=== PATIENT | female | born 1945 | race Caucasian/White ===

== ENCOUNTER 2023-10-11 07:48 | Day surgery (SDC) | payer MEDICARE, OTHER ==
[2023-10-07 16:19] LABS: BASOPHILS % (AUTO) 0.8 % (0-1); EOSINOPHILS # (AUTO) 0.2 X10'3 (0-0.9); EOSINOPHILS % (AUTO) 2.8 % (0-6); LYMPHOCYTES # (AUTO) 1.3 X10'3 (1.1-4.8); LYMPHOCYTES % (AUTO) 20.9 % (21-51); MEAN CORPUSCULAR HEMOGLOBIN 27.7 PG (27.0-31.0); MEAN CORPUSCULAR HGB CONC 33.2 g/dL (33.0-36.5); MEAN CORPUSCULAR VOLUME 83.3 FL (78-98); MEAN PLATELET VOLUME 7.9 FL (7.4-10.4); MONOCYTES # (AUTO) 0.5 X10'3 (0-0.9); MONOCYTES % (AUTO) 7.7 % (2-12); NEUTROPHILS # (AUTO) 4.2 X10'3 (1.8-7.7); NEUTROPHILS % (AUTO) 67.8 % (42-75); PRE OP HEMOGLOBIN 13.6 g/dL (12.0-16.0); PRE OP PLATELET COUNT 248 X10'3 (140-440); PRE OP WHITE BLOOD COUNT 6.2 10'3 (4.8-10.8); RED BLOOD COUNT 4.92 X10'6 (4.20-5.60)
[2023-10-07 16:36] LABS: PRE OP PROTIME 10.2 SECONDS (9.0-12.0)
[2023-10-07 16:39] LABS: ALBUMIN 3.5 G/DL (3.4-5.0); ALBUMIN/GLOBULIN RATIO 0.7 (1.1-1.5); ALKALINE PHOSPHATASE 55 IU/L (46-116); BLOOD UREA NITROGEN 23 MG/DL (7-18); BUN/CREATININE RATIO 21.5 (10.0-20.0); CALCIUM 9.3 MG/DL (8.5-10.1); CHLORIDE 100 MMOL/L (99-107); CREATININE 1.07 MG/DL (0.40-0.90); PRE OP ALT 32 U/L (30-65); PRE OP ANION GAP 10 (8-16); PRE OP AST 23 U/L (10-37); PRE OP BILIRUB, TOTAL 0.4 MG/DL (0.0-1.0); PRE OP GLUCOSE 100 MG/DL (70-104); PRE OP POTASSIUM 3.9 MMOL/L (3.4-5.1); PRE OP SODIUM 138 MMOL/L (135-145); TOTAL CARBON DIOXIDE 28.2 MMOL/L (24-32); TOTAL PROTEIN 8.2 G/DL (6.4-8.2); eGFR 50 ML/MIN
[~2023-10-11] VITALS: Ht 154.9 cm; Wt 66.4 kg
[2023-10-11] VITALS (8 sets, daily range): BP systolic 129–160; BP diastolic 56–81; PULSE 72–104; RESP 14–18; TEMP 98; O2SAT 95–100
[~2023-10-11 07:48] MED LIST: ACET-2006 PO; AMIT10TA6 PO; ATOR20TA66 PO; BIFI4CAP PO; DONE-46 PO; FLUO-100 PO; FOLI1TAB27 PO; GABA-535 PO; HYDR12.55 PO; LETR2.5T7 PO; MELA3CAP2 PO; cefazolin 2gm/D5W 100mL 100 ML IV ONE; levoFLOXACIN-Levaquin 500mg/D5 100 ML IV ONE
[2023-10-11] MEDS ORDERED: LIDOcaine 1% (10mg/ml)w/preservative inj. 20ml MDV ONE (07:50)
[2023-10-11] MEDS: famotidine 20mg tablet PO ONE (08:29)
[2023-10-11] MEDS: ringers solution, lacted 1,000 ML IV SCH (08:30)
[2023-10-11] MEDS: levoFLOXACIN-Levaquin 500mg/D5 100 ML IV ONE (08:31)
[2023-10-11] MEDS ORDERED: sevoflurane 250ml liquid IH ONE (09:17)
[2023-10-11] MEDS ORDERED: fentaNYL/PF 50MCG/1 ML 2ML syringe ONE (09:41)
[2023-10-11] MEDS ORDERED: ringers solution, lacted 1,000 ML IV SCH (10:35)
[2023-10-11] MEDS ORDERED: ondansetron/PF 4mg/2ml inj IV PRN (10:35)
[2023-10-11] MEDS: BUPIVAcaine 2.5mg/ml inj 50ml vial (contains preservative) ONE (14:56)
[2023-10-11] MEDS: LIDOcaine 1% (10mg/ml)w/preservative inj. 20ml MDV ONE (14:57)
== END 2023-10-11 11:14 | disposition home or self-care (01) ==
LOC: PAS 07:48
PROVIDERS: ATTEND Surgery
DX: R92.8 Other abnormal and inconclusive findings on diagnostic imaging of breast (principal); I20.9 Angina pectoris, unspecified; G47.30 Sleep apnea, unspecified; F03.94 Unspecified dementia, unspecified severity, with anxiety; F32.A Depression, unspecified; I25.2 Old myocardial infarction; M19.90 Unspecified osteoarthritis, unspecified site; Z79.891 Long term (current) use of opiate analgesic; Z79.899 Other long term (current) drug therapy; Z90.49 Acquired absence of other specified parts of digestive tract; Z90.710 Acquired absence of both cervix and uterus; Z98.890 Other specified postprocedural states; Z88.0 Allergy status to penicillin
CPT/HCPCS: 19301; 36415; 80053; 82948; 85025; 85610; 85730; J1956; J3010; J3490; J7120; Z7512; Z7610; A4215; A4618; A6449; A7000; J1100; J2405; J2704

== ENCOUNTER 2023-10-11 19:30 | Emergency (ER) | payer MEDICARE, OTHER ==
[~2023-10-11] VITALS: Ht 162.6 cm; Wt 65.9 kg
[~2023-10-11 19:30] MED LIST changes: -cefazolin 2gm/D5W 100mL 100 ML IV ONE; -levoFLOXACIN-Levaquin 500mg/D5 100 ML IV ONE
[2023-10-11 19:38] VITALS: TEMP 97.4
[2023-10-11 20:06] LABS: BASOPHILS % (AUTO) 0.3 % (0-1); EOSINOPHILS % (AUTO) 0.1 % (0-6); HEMATOCRIT 37.1 % (35.0-45.0); HEMOGLOBIN 12.6 g/dl (12.0-16.0); LYMPHOCYTES # (AUTO) 0.5 X10'3 (1.1-4.8); LYMPHOCYTES % (AUTO) 10.5 % (21-51); MEAN CORPUSCULAR HEMOGLOBIN 28.2 PG (27.0-31.0); MEAN CORPUSCULAR VOLUME 82.7 FL (78-98); MEAN PLATELET VOLUME 8.2 FL (7.4-10.4); MONOCYTES # (AUTO) 0.1 X10'3 (0-0.9); NEUTROPHILS # (AUTO) 4.4 X10'3 (1.8-7.7); NEUTROPHILS % (AUTO) 87.1 % (42-75); PLATELET COUNT 211 X10'3 (140-440); RED BLOOD COUNT 4.48 X10'6 (4.20-5.60); RED CELL DISTRIBUTION WIDTH 14.9 % (11.5-14.5)
[2023-10-11 20:21] LABS: ALBUMIN 3.2 G/DL (3.4-5.0); ANION GAP 9 (8-16); BLOOD UREA NITROGEN 19 MG/DL (7-18); BUN/CREATININE RATIO 14.7 (10.0-20.0); CALCIUM 8.9 MG/DL (8.5-10.1); CHLORIDE 101 MMOL/L (99-107); CREATININE 1.29 MG/DL (0.40-0.90); GLUCOSE 137 MG/DL (70-104); POTASSIUM 4.1 MMOL/L (3.5-5.1); PRO BRAIN NATRIURETIC PEPTIDE 494 PG/ML (0-450); SODIUM 135 MMOL/L (135-145); TOTAL CARBON DIOXIDE 24.8 MMOL/L (24-32); eCRCL 31 ML/MIN; eGFR 40 ML/MIN
[2023-10-11 21:43] VITALS: BP 139/54; PULSE 87; RESP 18; O2SAT 95
== END 2023-10-11 21:51 | disposition home or self-care (01) ==
LOC: ER 19:30
DX: R07.9 Chest pain, unspecified (principal); Z88.0 Allergy status to penicillin; Z79.899 Other long term (current) drug therapy
CPT/HCPCS: 36415; 71045; 80048; 83880; 84484; 85025; 93005; 99285

== ENCOUNTER 2024-03-09 11:59 | Outpatient (CLI) | payer MEDICARE, OTHER ==
[2024-03-09] MEDS ORDERED: GADOTERATE MEGLUMINE 7.5 MMOL/15 ML VIAL IV ONE (18:04)
== END 2024-03-09 23:59 | disposition home or self-care (01) ==
LOC: MRI 11:59
PROVIDERS: ATTEND Family Medicine
DX: M51.379 Other intervertebral disc degeneration, lumbosacral region without mention of lumbar back pain or lower extremity pain (principal); M51.34 Other intervertebral disc degeneration, thoracic region; M16.11 Unilateral primary osteoarthritis, right hip; M43.17 Spondylolisthesis, lumbosacral region; M48.061 Spinal stenosis, lumbar region without neurogenic claudication; K57.30 Diverticulosis of large intestine without perforation or abscess without bleeding; M25.851 Other specified joint disorders, right hip; M25.551 Pain in right hip
CPT/HCPCS: 72158; 73723; A9575